=== PATIENT | female | born 1935 | race Caucasian/White ===

== ENCOUNTER 2021-08-12 20:39 | Inpatient (IN) | payer MEDICARE, MEDICAID ==
[~2021-08-12] VITALS: Ht 160 cm; Wt 75.3 kg
[2021-08-12] MEDS ORDERED: LASIX20 MG PO (22:33)
[2021-08-12] MEDS ORDERED: ZESTRIL20 MG PO (22:34)
[2021-08-12] MEDS ORDERED: VITAMIN D31250 MCG PO (22:37)
[2021-08-12] MEDS ORDERED: LEVOTHYROXINE50 MC1 PO (22:38)
[2021-08-12] MEDS ORDERED: IBUPROFEN600 MG PO (22:39)
[2021-08-12] MEDS ORDERED: ASPIRIN 325MG325 MG PO (22:40)
[2021-08-13 07:13] LABS: HEMOGLOBIN 10.3 gm/dl (12.3-15.3); RED BLOOD COUNT 3.65 M/UL (4.00-5.10); WHITE BLOOD COUNT 7.8 K/UL (4.5-11.0)
[2021-08-13] MEDS ORDERED: HYDROCODON-ACE1 EAC4 PO (15:41)
[2021-08-15 06:21] LABS: WHITE BLOOD COUNT 6.4 K/UL (4.5-11.0)
[2021-08-15 06:23] LABS: RED BLOOD COUNT 2.45 M/UL (4.00-5.10)
[2021-08-15 06:24] LABS: BUN/CREATININE RATIO 30 (0-10)
--- NOTE | 2021-08-15 06:29 | NUR ---
NOTIFIED DR LOVE OF HGB OF 7.0. RECIEVED NO NEW ORDERS. WILL CONTINUE TO MONITOR.
[2021-08-16 06:51] LABS: HEMOGLOBIN 8.2 gm/dl (12.3-15.3); WHITE BLOOD COUNT 6.1 K/UL (4.5-11.0)
[2021-08-16 07:02] LABS: RED BLOOD COUNT 2.85 M/UL (4.00-5.10)
[2021-08-16 07:09] LABS: BUN/CREATININE RATIO 35 (0-10)
[2021-08-16] MEDS ORDERED: ELIQUIS 2.5 MG2.5 MG PO (09:52)
[2021-08-16] MEDS ORDERED: FERROUS GLUCON324 M1 PO (09:52)
[2021-08-16] MEDS ORDERED: POLYETHYLENE GL17 GM PO (09:52)
[2021-08-16] MEDS ORDERED: STIMULANT LAXA1 EACH PO (09:52)
[2021-08-16] MEDS ORDERED: PROTONIX40 MG PO (09:54)
== END 2021-08-16 13:28 | disposition home health service (06) | DRG 481 ==
LOC: M/S 20:39
PROVIDERS: Internal Medicine; Orthopaedic Surgery; Physician Assistant; ADMIT Internal Medicine
PROC: 0QS604Z Reposition Right Upper Femur with Internal Fixation Device, Open Approach (ICD-10-PCS; principal; 2021-08-13 13:47)
PROC: 30233N1 Transfusion of Nonautologous Red Blood Cells into Peripheral Vein, Percutaneous Approach (ICD-10-PCS; 2021-08-15)
DX: S72.141A Displaced intertrochanteric fracture of right femur, initial encounter for closed fracture (principal); D62 Acute posthemorrhagic anemia; I10 Essential (primary) hypertension; E03.9 Hypothyroidism, unspecified; Z20.822 Contact with and (suspected) exposure to COVID-19; M19.90 Unspecified osteoarthritis, unspecified site; M85.80 Other specified disorders of bone density and structure, unspecified site; K59.00 Constipation, unspecified; Z90.710 Acquired absence of both cervix and uterus; Z79.01 Long term (current) use of anticoagulants; Z79.82 Long term (current) use of aspirin
CPT/HCPCS: 36415; 73502; 73552; 73562; 73600; 76000; 80048; 81001; 83540; 83550; 85018; 85025; 85027; 85610; 86850; 86900; 86901; 86920; 93005; 97110-GP-CQ; 97116; 97116-GP-CQ; 97161; 97166; 97530-GP-CQ; 97535; C1713; J0690; J1100; J1650; J2001; J2250; J2270; J2405; J2704; J2795; J3010; J7120; P9016